=== PATIENT | female | born 1970 | race Caucasian/White ===

== ENCOUNTER 2020-07-17 22:25 | Emergency (ER) | payer OTHER ==
[~2020-07-17] VITALS: Ht 170.2 cm; Wt 131.8 kg
[2020-07-17 22:51] VITALS: TEMP 97.5
[2020-07-17 23:50] VITALS: BP 150/85; PULSE 95
== END 2020-07-17 23:50 | disposition home or self-care (01) ==
LOC: COL.ER 22:25
DX: Z00.00 Encounter for general adult medical examination without abnormal findings (principal); Z87.891 Personal history of nicotine dependence